=== PATIENT | male | born 1960 | race Caucasian/White ===

== ENCOUNTER → 2016-11-23 | Outpatient (CLI) | payer MEDICARE | LOC: KOH-I 12:16 | DX: M54.2 Cervicalgia (principal); M47.812 Spondylosis without myelopathy or radiculopathy, cervical region | CPT/HCPCS: 72050 ==

== ENCOUNTER → 2020-08-25 | Outpatient (CLI) | payer MEDICARE ==
[~2020-08-25] MED LIST: ALLOPURINOL300 MG PO; DECADRON6 MG PO; FLOMAX 0.4 MG0.4 MG PO; FOLTX TABLET1 EACH PO; IBU800 MG PO; IPRAT-ALBUT 0.5-3 ML INH; LABETALOL HCL300 MG PO; LEVOTHYROXINE25 MCG PO; LIPITOR20 MG PO; LISINOPRIL10 MG PO; LOPRESSOR 50 MG50 MG PO; METFORMIN HCL1000 MG PO; MONTELUKAST SOD10 MG PO; OMEPRAZOLE40 MG PO; ZESTRIL40 MG PO
== END ==
LOC: KOH-I 10:59
DX: M25.532 Pain in left wrist (principal); M19.032 Primary osteoarthritis, left wrist; M11.232 Other chondrocalcinosis, left wrist; M79.89 Other specified soft tissue disorders
CPT/HCPCS: 73110

== ENCOUNTER → 2020-12-31 | Outpatient (CLI) | payer MEDICARE, OTHER | LOC: KOH-I 11:31 | DX: M25.511 Pain in right shoulder (principal); M19.011 Primary osteoarthritis, right shoulder | CPT/HCPCS: 73030 ==

== ENCOUNTER → 2021-02-16 | Outpatient (CLI) | payer MEDICARE, OTHER | LOC: KOH-I 16:36 | DX: J44.9 Chronic obstructive pulmonary disease, unspecified (principal) | CPT/HCPCS: 71046 ==

== ENCOUNTER 2022-05-12 09:20 | Emergency (ER) | payer MEDICARE ==
[2022-05-12] MEDS ORDERED: MEDROL TAB 4 MG4 MG PO (12:27)
== END 2022-05-12 13:19 | disposition home or self-care (01) ==
LOC: ER1 09:20
DX: M79.605 Pain in left leg (principal); M54.50 Low back pain, unspecified; E78.5 Hyperlipidemia, unspecified; E11.9 Type 2 diabetes mellitus without complications; J44.9 Chronic obstructive pulmonary disease, unspecified; I10 Essential (primary) hypertension; W19.XXXA Unspecified fall, initial encounter
CPT/HCPCS: 72131; 73552; 93971; 99283